=== PATIENT | female | born 1970 | race Caucasian/White ===

== ENCOUNTER 2023-10-13 13:35 | Emergency (ER) | payer OTHER | END 2023-10-13 17:33 | disposition home or self-care (01) | LOC: JP.ED 13:35 | DX: S52.131A Displaced fracture of neck of right radius, initial encounter for closed fracture (principal); S52.132A Displaced fracture of neck of left radius, initial encounter for closed fracture; Z79.899 Other long term (current) drug therapy; W01.0XXA Fall on same level from slipping, tripping and stumbling without subsequent striking against object, initial encounter | CPT/HCPCS: 29105; 73080-50; 73090-50; 73110-RT; 99283-25; 99284 ==